=== PATIENT | male | born 1930 | race Caucasian/White ===

== ENCOUNTER 2018-12-04 05:49 | Day surgery (SDC) | payer OTHER ==
[~2018-12-04 05:49] MED LIST: ASA81 MG PO; COZAAR100 MG PO; GABAPENTIN600 MG PO; HUMALOG100 UNIT/1; LANTUS SOL100 UNIT/1 SUBCUTANEO; LIPITOR20 MG PO; NORVASC5 MG PO; PEPCID20 MG PO; PROSCAR5 MG PO; TOPROL XL100 M1 PO; VITAMIN D10000 UNIT PO
== END 2018-12-04 16:20 | disposition home or self-care (01) ==
LOC: CIR.AMB 05:49
DX: K64.8 Other hemorrhoids (principal); K64.4 Residual hemorrhoidal skin tags

== ENCOUNTER 2018-12-13 10:02 | Outpatient (CLI) | payer OTHER | END 2018-12-13 10:05 | disposition home or self-care (01) | LOC: LAB 10:02 | DX: R31.9 Hematuria, unspecified (principal) ==

== ENCOUNTER 2018-12-18 07:25 | Outpatient (CLI) | payer OTHER | END 2018-12-18 07:27 | disposition home or self-care (01) | LOC: TOM 07:25 | DX: C65.2 Malignant neoplasm of left renal pelvis (principal) | CPT/HCPCS: 74178; Q9965 ==